=== PATIENT | male | born 1950 | race Caucasian/White ===

== ENCOUNTER → 2016-12-13 | Outpatient (CLI) | payer OTHER | LOC: FIMAGING 13:27 | PROVIDERS: ATTEND Physician Assistant | DX: M54.12 Radiculopathy, cervical region (principal); M51.36 Other intervertebral disc degeneration, lumbar region; M43.12 Spondylolisthesis, cervical region; M50.23 Other cervical disc displacement, cervicothoracic region; M48.02 Spinal stenosis, cervical region ==

== ENCOUNTER → 2017-03-06 | Outpatient (CLI) | payer OTHER ==
[~2017-03-06] MED LIST: GADOBUTROL 10 ML VIAL IVP ONE
== END ==
LOC: FIMAGING 12:47
PROVIDERS: ATTEND Psychiatry & Neurology Neurology
DX: M51.36 Other intervertebral disc degeneration, lumbar region (principal)
CPT/HCPCS: 72158; A9585

== ENCOUNTER → 2017-03-18 | Outpatient (CLI) | payer OTHER | LOC: FLAB 09:38 | PROVIDERS: ATTEND Physician Assistant | DX: M51.36 Other intervertebral disc degeneration, lumbar region (principal); M43.16 Spondylolisthesis, lumbar region; M54.2 Cervicalgia ==

== ENCOUNTER 2017-04-26 16:24 | Inpatient (IN) | payer OTHER ==
--- NOTE | 2017-04-26 16:46 | CPEKG ---
Heart Rate: 78 RR Interval: 769 P-R Interval: 164 QRSD Interval: 92 QT Interval: 368 QTC Interval: 420 P [place]: 38 QRS [place]: -38 T Wave [place]: 80 EKG Severity - ABNORMAL ECG - EKG Impression: SINUS RHYTHM EKG Impression: LEFT AXIS DEVIATION EKG Impression: LATERAL INFARCT, OLD Electronically Signed By: Issa Rodriguez 26-Apr-2017 17:01:40
[2017-04-26] MEDS ORDERED: ASPIRIN 81 MG CHEWABLE TAB PO ONE (16:56)
[2017-04-26] MEDS ORDERED: NITROGLYCERIN 0.4 MG BTL SL PRN (16:56)
--- NOTE | 2017-04-26 16:59 | EDPHY ---
H & P Stated Complaint: chest pain starting last night Time Seen by Provider: 04/26/17 16:54 HPI/ROS: CHIEF COMPLAINT: Chest pain HISTORY OF PRESENT ILLNESS: Patient is a 67-year-old man who comes to the emergency department complaining of chest pain that began last night and is intensified throughout the morning. He denies shortness of breath or diaphoresis. He has felt slightly nauseous. No lightheadedness. The pain does radiate to his left shoulder and neck. He states that he had a coronary artery occlusion 25 years ago and received tPA. He has not had any intervention since then but has had negative stress test with Dr. Washington's office. REVIEW OF SYSTEMS: Constitutional: denies: chills, fever, recent illness, recent injury EENTM: denies: blurred vision, double vision, nose congestion Respiratory: denies: cough, shortness of breath Cardiac: denies: chest pain, irregular heart rate, lightheadedness, palpitations Gastrointestinal/Abdominal: denies: abdominal pain, diarrhea, nausea, vomiting, blood streaked stools Genitourinary: denies: dysuria, frequency, hematuria, pain Musculoskeletal: denies: joint pain, muscle pain Skin: denies: lesions, rash, jaundice, bruising Neurological: denies: headache, numbness, paresthesia, tingling, dizziness, weakness Hematologic/Lymphatic: denies: blood clots, easy bleeding, easy bruising Immunologic/allergic: denies: HIV/AIDS, transplant EXAM: GENERAL: Well-appearing, well-nourished and in no acute distress. HEAD: Atraumatic, normocephalic. EYES: Pupils equal round and reactive to light, extraocular movements intact, sclera anicteric, conjunctiva are normal. ENT: TMs normal, nares patent, oropharynx clear without exudates. Moist mucous membranes. NECK: Normal range of motion, supple without lymphadenopathy or JVD. LUNGS: Breath sounds clear to auscultation bilaterally and equal. No wheezes rales or rhonchi. HEART: Regular rate and rhythm without murmurs, rubs or gallops. ABDOMEN: Soft, nontender, normoactive bowel sounds. No guarding, no rebound. No masses appreciated. BACK: No CVA tenderness, no spinal tenderness, step-offs or deformities EXTREMITIES: Normal range of motion, no pitting or edema. No clubbing or cyanosis. NEUROLOGICAL: Cranial nerves II through XII grossly intact. Normal speech, normal gait. 5/5 strength, normal movement in all extremities, normal sensation PSYCH: Normal mood, normal affect. SKIN: Warm, dry, normal turgor, no visible rashes or lesions. Source: Patient Exam Limitations: No limitations - Personal History Current Tetanus/Diphtheria Vaccine: Yes Current Tetanus Diphtheria and Acellular Pertussis (TDAP): Yes Tetanus Vaccine Date: < 10 years - Medical/Surgical History Hx Asthma: No Hx Chronic Respiratory Disease: No Hx Diabetes: No Hx Cardiac Disease: Yes Hx Renal Disease: No Hx Cirrhosis: No Hx Alcoholism: No Hx HIV/AIDS: No Hx Splenectomy or Spleen Trauma: No Other PMH: HTN, CAD, MS - Family History Significant Family History: No pertinent family hx - Social History Smoking Status: Never smoked Alcohol Use: Sober Drug Use: None Constitutional: Initial Vital Signs Temperature (C) 36.8 C 04/26/17 16:26 Heart Rate 87 04/26/17 16:26 Respiratory Rate 18 04/26/17 16:26 Blood Pressure 123/115 H 04/26/17 16:26 O2 Sat (%) 98 04/26/17 16:26 O2 Delivery Mode Nasal Cannula O2 (L/minute) 2 Allergies/Adverse Reactions: No Known Allergies Allergy (Verified 04/26/17 16:26) Home Medications: Medication Instructions Recorded Cholecalciferol Vit D3 [Vitamin D3 1,000 units PO DAILY 04/22/17 (*)] Herbals/Supplements -Info Only 1 ea PO DAILY 04/22/17 Multivitamins [Multivitamin (*)] 1 each PO DAILY 04/22/17 Teriflunomide [Aubagio] 14 mg PO HS 04/22/17 Furosemide [Lasix 20 MG (*)] 20 mg PO DAILY PRN 04/26/17 Testosterone [Testopel] 75 mg [place] .[id number] 04/26/17 oxyCODONE MYRISTATE [Xtampza ER] 18 mg PO BID 04/27/17 Aspirin EC [Aspirin EC 325 mg (*)] 325 mg PO DAILY tab 04/28/17 Atorvastatin Calcium [Lipitor 20 20 mg PO DAILY #30 tab 04/28/17 mg (*)] Clopidogrel Bisulfate [Plavix (*)] 75 mg PO DAILY #30 tab 04/28/17 Metoprolol Tartrate [Lopressor 25 0.5 tab PO BID 30 Days #15 tab 04/28/17 mg (*)] Triamterene/Hctz 75/50 [Maxzide 0.5 tab PO DAILY 30 Days #15 tab 04/28/17 75-50 mg Tab (*)] Medical Decision Making - Diagnostics EKG Interpretation: An EKG obtained and was read and documented in trace view. Please see trace view for full reading and report. Sinus rhythm, anterior T-wave inversions that are new compared to previous 2011 An EKG obtained and was read and documented in trace view. Please see trace view for full reading and report. Sinus rhythm, T-wave inversions improving but still slightly present ED Course/Re-evaluation: 6:00 p.m. We discussed the case with Dr. Mcdermott who will come to evaluate. The patient's chest pain improved and his EKG improved as well. He has dynamic changes. His troponin is negative. He received nitroglycerin and his blood pressure dropped and he became pale. He is receiving IV fluid bolus. 6:[address] Mcdermott is here and will take the patient to the warehouse general laborer he is asking for Plavix. Differential Diagnosis: Partial list of the Differential diagnosis considered include but were not limited to; acute coronary disease, dissection and although unlikely based on the history and physical exam, I also considered aneurysm, effusion, infection. - Data Points Laboratory Results: Laboratory Results 04/26/17 16:45 04/26/17 16:45 Medications Given: Aspirin Buffered (Aspirin Ec) 325 mg PO DAILY [facility] Stop: 10/24/17 08:59 Last Admin: 04/28/17 08:30 Dose: 325 mg Atorvastatin Calcium (Lipitor) 20 mg PO DAILY [facility] Stop: 10/24/17 08:59 Last Admin: 04/28/17 08:29 Dose: 20 mg Clopidogrel Bisulfate (Plavix) 75 mg PO DAILY [facility] Stop: 10/24/17 08:59 Last Admin: 04/28/17 08:29 Dose: 75 mg Metoprolol Tartrate (Lopressor) 12.5 mg PO BID [facility] Stop: 10/23/17 20:59 Last Admin: 04/28/17 08:31 Dose: 12.5 mg Miscellaneous Medication (Oxycodone Myristate [Xtampza Er]) 18 mg PO BID [facility] Stop: 10/24/17 08:59 Last Admin: 04/28/17 08:31 Dose: 18 mg Miscellaneous Medication (Teriflunomide [Aubagio]) 14 mg PO HS [facility] Stop: 10/24/17 20:59 Last Admin: 04/27/17 19:30 Dose: 14 mg Discontinued Medications Aspirin (Aspirin) 324 mg PO EDNOW ONE Stop: 04/26/17 16:57 Last Admin: 04/26/17 16:25 Dose: 324 mg Clopidogrel Bisulfate (Plavix) 600 mg PO ONCE ONE Stop: 04/26/17 18:38 Last Admin: 04/26/17 19:03 Dose: 600 mg Nitroglycerin (Nitrostat) 0.4 mg SL Q5M PRN PRN Reason: Chest Pain Last Admin: 04/26/17 17:45 Dose: 0.4 mg Departure - Departure Disposition: [facility] Acute Clinical Impression: Acute coronary syndrome Condition: Fair
[2017-04-26 17:03] LABS: PLATELET COUNT 189 10^3/uL (150-400)
--- NOTE | 2017-04-26 17:19 | CPEKG ---
Heart Rate: 75 RR Interval: 800 P-R Interval: 168 QRSD Interval: 92 QT Interval: 388 QTC Interval: 434 P [place]: 27 QRS [place]: -33 T Wave [place]: 77 EKG Severity - ABNORMAL ECG - EKG Impression: SINUS RHYTHM EKG Impression: LEFT AXIS DEVIATION EKG Impression: NONSPECIFIC T ABNORMALITIES, LATERAL LEADS Electronically Signed By: Issa Rodriguez 26-Apr-2017 17:40:01
[2017-04-26 17:26] LABS: INR 0.92 (0.83-1.16); PROTIME(PATIENT) 12.6 SEC (12.0-15.0)
[2017-04-26] MEDS ORDERED: CLOPIDOGREL BISULFATE 75 MG TAB PO ONE (18:37)
--- NOTE | 2017-04-26 18:48 | PDGENHP ---
History and Physical - Chief Complaint chest pain - History of Present Illness Chest pain, precordial radiating to L arm since 3 AM. No CP 9-11 am, recurred at 11 AM and has been waxing/waning since. No abd pain. No back pain. No syncope. No dyspnea. BP dropped to 70 mmHg in ED with NTG History Information - Allergies/Home Medication List Allergies/Adverse Reactions: No Known Allergies Allergy (Verified 04/26/17 16:26) Home Medications: Cholecalciferol Vit D3 [Vitamin D3 (*)] 1,000 units PO DAILY 04/22/17 [Last Taken Unknown] Herbals/Supplements -Info Only 1 ea PO DAILY 04/22/17 [Last Taken Unknown] Lisinopril [Zestril 20 mg (*)] 20 mg PO DAILY 04/22/17 [Last Taken Unknown] Multivitamins [Multivitamin (*)] 1 each PO DAILY 04/22/17 [Last Taken Unknown] Teriflunomide [Aubagio] 14 mg PO DAILY 04/22/17 [Last Taken Unknown] Triamterene/Hctz 75/50 [Maxzide 75-50 mg Tab (*)] 1 tab PO DAILY 04/22/17 [Last Taken Unknown] Androgel 04/23/17 [Last Taken Unknown] Oxycontin PRN 04/23/17 [Last Taken Unknown] Xtampza ER 04/26/17 [Last Taken Unknown] I have personally reviewed and updated: family history, medical history, social history, surgical history - Past Medical History hypertension, hyperlipidemia Additional medical history: multiple sclerosis - Surgical History Additional surgical history: multiple ortho surgeries,. lela'y - Social History Smoking Status: Never smoked Alcohol Use: Sober Drug Use: None Review of Systems Review of Systems: ROS: 10pt was reviewed & negative except for what was stated in HPI & below Physical Exam Physical Exam: Temp Pulse Resp BP Pulse Ox 36.8 C 63 16 88/54 L 98 04/26/17 16:26 04/26/17 18:00 04/26/17 18:00 04/26/17 18:00 04/26/17 18:00 Constitutional: appears nourished, uncomfortable Eyes: PERRL, EOMI Ears, Nose, Mouth, Throat: moist mucous membranes, hearing normal Cardiovascular: regular rate and rhythym, no murmur, rub, or gallop, other ( pulses equal both arms) Peripheral Pulses: 2+: femoral (R), femoral (L), dorsalis-pedis (R), dorsalis- pedis (L) Respiratory: no respiratory distress, no rales or rhonchi Gastrointestinal: normoactive bowel sounds, soft, non-tender abdomen Skin: warm, normal color Musculoskeletal: full muscle strength, no muscle tenderness, normal joint ROM Neurologic: AAOx3, sensation intact bilaterally Psychiatric: interacting appropriately, not anxious, not encephalopathic, thought process linear Lab Data & Imaging Review 04/26/17 16:45 04/26/17 16:45 WBC 7.78 10^3/uL (3.80-9.50) 04/26/17 16:45 RBC 5.36 10^6/uL (4.40-6.38) 04/26/17 16:45 Hgb 16.5 g/dL (13.7-17.5) 04/26/17 16:45 Hct 48.7 % (40.0-51.0) 04/26/17 16:45 MCV 90.9 fL (81.5-99.8) 04/26/17 16:45 MCH 30.8 pg (27.9-34.1) 04/26/17 16:45 MCHC 33.9 g/dL (32.4-36.7) 04/26/17 16:45 RDW 13.9 % (11.5-15.2) 04/26/17 16:45 Plt Count 189 10^3/uL (150-400) 04/26/17 16:45 MPV 10.4 fL (8.7-11.7) 04/26/17 16:45 Neut % (Auto) 61.3 % (39.3-74.2) 04/26/17 16:45 Lymph % (Auto) 21.7 % (15.0-45.0) 04/26/17 16:45 [place] % (Auto) 11.3 % (4.5-13.0) 04/26/17 16:45 Eos % (Auto) 4.4 % (0.6-7.6) 04/26/17 16:45 Baso % (Auto) 1.0 % (0.3-1.7) 04/26/17 16:45 Nucleat RBC Rel Count 0.0 % (0.0-0.2) 04/26/17 16:45 Absolute Neuts (auto) 4.77 10^3/uL (1.70-6.50) 04/26/17 16:45 Absolute Lymphs (auto) 1.69 10^3/uL (1.00-3.00) 04/26/17 16:45 Absolute Monos (auto) 0.88 10^3/uL (0.30-0.80) H 04/26/17 16:45 Absolute Eos (auto) 0.34 10^3/uL (0.03-0.40) 04/26/17 16:45 Absolute Basos (auto) 0.08 10^3/uL (0.02-0.10) 04/26/17 16:45 Absolute Nucleated RBC 0.00 10^3/uL (0-0.01) 04/26/17 16:45 Immature Gran % 0.3 % (0.0-1.1) 04/26/17 16:45 Immature Gran # 0.02 10^3/uL (0.00-0.10) 04/26/17 16:45 PT 12.6 SEC (12.0-15.0) 04/26/17 16:45 INR 0.92 (0.83-1.16) 04/26/17 16:45 APTT 28.8 SEC (23.0-38.0) 04/26/17 16:45 D-Dimer < 0.27 ug/mLFEU (0.00-0.50) 04/26/17 16:45 Sodium 144 mEq/L (135-145) 04/26/17 16:45 Potassium 3.6 mEq/L (3.5-5.2) 04/26/17 16:45 Chloride 100 mEq/L (97-110) 04/26/17 16:45 Carbon Dioxide 30 mEq/l (22-31) 04/26/17 16:45 Anion Gap 14 mEq/L (8-16) 04/26/17 16:45 BUN 20 mg/dL (7-23) 04/26/17 16:45 Creatinine 1.0 mg/dL (0.7-1.3) 04/26/17 16:45 Estimated GFR > 60 04/26/17 16:45 Glucose 108 mg/dL (70-100) H 04/26/17 16:45 Calcium 9.7 mg/dL (8.5-10.4) 04/26/17 16:45 Troponin I 0.321 ng/mL (0.000-0.034) H 04/26/17 16:45 EKG additional interpertation: NSR, ST depression with prominent R wave V2, dynamic ECG changes Assessment & Plan Assessment: Acute coronary syndrome (Acute) NSTEMI, poss posterior infarct Plan: -ASA 325 mg given in ED -BB not given due to hypotension -Plavix 600 mg ordered to be given in ED -With ongoing CP, and dynamic ECG changes + troponin increase; coronary angiogram is appropriate. Risks of procedure including , PA, CVA, bleed, DVT, PE, renal failure, anaphylaxis d.w. patient and . Outcomes including no Rx, PCI, CABG d.w. them
--- NOTE | 2017-04-26 18:57 | PDHPUP ---
History & Physical Update H&P update statement: This history and physical update is based on an assessment of the patient which was completed after admission or registration (within 24 hours), but prior to the surgery/procedure. H&P update: H&P reviewed & patient examined, no change in patient's condition since H&P completed
[2017-04-26] MEDS ORDERED: LIDOCAINE 1% 300 MG/30 ML SDV ONE (18:58)
--- NOTE | 2017-04-26 18:58 | PDPROPOC ---
Sedation Plan of Care Sedation Plan of Care: mental status noted, patient educated of risks, benefits , alternatives, patient can tolerate sedation ASA Classification: ASA 2 Planned drugs: fentanyl, midazolam Mallampati Score: Class 2 Mallampati Reference Image: Patient passed 3-3-2 rule?: Yes
[2017-04-26] MEDS ORDERED: fentaNYL 100 MCG/2 ML INJ ONE ×2 (19:26→20:18)
[2017-04-26] MEDS ORDERED: IOPAMIDOL (ISOVUE-370) 150 ML BTL IV ONE (19:26)
[2017-04-26] MEDS ORDERED: MIDAZOLAM 2 MG/2 ML VIAL ONE (19:26)
[2017-04-26] MEDS ORDERED: BIVALIRUDIN 250 MG/5 ML VIAL IV ONE (19:38)
[2017-04-26] MEDS: METOPROLOL TARTRATE 25 MG TAB PO SCH (21:25)
--- NOTE | 2017-04-26 22:08 | CPIP ---
[f rep st] INVASIVE CARDIAC PROCEDURE DATE OF PROCEDURE: 04/26/2017 INDICATIONS FOR PROCEDURE: Non-STEMI. PROCEDURES: 1. Nonselective right groin sheathogram. 2. Bilateral coronary angiography. 3. Left heart catheterization. 4. Left ventriculogram. 5. Attempted wiring and ballooning, right coronary artery chronic total occlusion. HISTORY: Briefly, this is a 67-year-old male with history of prior remote [place] years ago, which appare ntly was treated with tPA. The patient had chest pain last night and came to the emergency room for further evaluation. The patient had nonspecific T-wave changes in the anterior leads. Patient also became hypotensive with admission sublingual nitroglycerin. Patient had a troponin of 0.321. The pa tient was consented for left heart catheterization. DESCRIPTION OF PROCEDURE: After informed consent, the patient was brought to [facility] where the right niles in was prepped and draped in sterile fashion. Utilizing local lidocaine, a short 6-Moldovan sheath was introduced in the right common femoral artery verified angiographically. Through the 6-Moldovan sheat h, a JR4 catheter was advanced to the left coronary artery. Images of left coronary artery revealed normal left main. LAD was a long vessel which wrapped around the apex with distal 30% to 40% disease . There was a small long diagonal artery coming off proximally which had proximal 80% to 90% disease , but again, this vessel measured approximately 1.0 in its width. Proximally there was a circumflex artery which had diffuse 30% to 40% disease and which gave off a marginal 1 which bifurcated and a ma rginal 2 artery. Of note, there was what appeared to be an occluded distal marginal 3 artery which r econstituted from jwst-be-acop collaterals. This appeared to be a very tiny vessel measuring well be low 0.5 mm. Of note, there was also robust collateralization to the distal RPD and RPL, thus indicat ing most likely an RCA occlusion. After the images were obtained, the JL4 catheter was removed. The JR4 catheter was advanced to the right coronary artery. Images of the right coronary artery reveale d normal os prox RCA. The mid RCA had 70% to 80% smooth lesion leading to 100% occlusion. At this t jad, the JR4 catheter was removed. The patient had been administered 600 mg of Plavix p.o. prior to the case as well as started on an Angiomax bolus and drip. We placed a JR4 6-Moldovan guide into the r ight coronary artery and attempts were made to wire this lesion in the RCA with a Choice PT wire. Of note, the wire had much difficulty traversing this area but did successfully eventually cross into w hat appeared to be the RPDA and RPLS. Of note, there did appear to be reconstitution of the vessel o nce the wire did cross. However, we tried to deliver balloons ranging from 3.0 down to 1.5, however, none of the balloons would cross. We then placed a Guidezilla and a GuideLiner. Both these devices were not effective in delivering even the smallest 1.5 balloon across the mid RCA lesions. We then switched out the guide for an AL1 side-hole 6-Moldovan catheter and rewired with a [employer] J wire. Th is again had difficulty rewiring across the mid vessel but it was in true vessel distally. We again tried to deliver the balloon starting from the 1.5 balloon. A brief PTCA was attempted in the mid pr oximal aspect to see if this would give us enough of tunnel to get through this lesion. At 10 atmosp heres, however, this was not successful in opening the vessel any further. We then placed again the GuideLiner to see if it would give us any further depth. However, this was not able to get past the proximal mid lesion in the RCA. After all of these issues, it should be noted that the patient's ECG stayed completely normal sinus rhythm with no ST elevations. The patient's blood pressure stayed st able as well and he did not have any chest pain during this, which indicated that this lesion in the mid RCA, though occluded with some increase in flow antegrade with a wire the crossing, was most like ly a subtotal LEGAL OFFICER. The patient had robust collateralization from the left to right coronary artery a nd again at this point in the case, the patient was completely stable. Given the fact that numerous balloons, even the smallest 1.5 mm balloon, was attempted to cross this lesion with a GuideLiner and could not even traverse the mid RCA, we decided this most likely was a subtotal chronic total occlusi on. At this time, the wire was removed. The guide catheter was removed. The pigtail catheter was a dvanced to the left ventricle, EDP was 15 mmHg. Left ventriculogram in the BOSS projection showed an EF of 55% with no wall motion abnormalities and the inferior wall moved normally. The pigtail cathet er was removed with no pullback gradient. The pigtail catheter was removed over the 0.035 wire. Rig ht groin was closed with a 6-Moldovan angio-seal. Patient tolerated the procedure well with no issues. IMPRESSION: 1. 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 2. Severe disease of a small diagonal artery. 3. Occluded distal marginal 3 artery which is a tiny vessel. PLAN: The patient's diagonal arteries and marginal arteries are not amenable to bypass surgery given the tiny caliber of the vessels. The RCA is a large vessel distally. However, there is robust ashwin ateralization from left to right coronary artery and the patient is currently asymptomatic and hemody namically stable with an ECG that shows no inferior injury current. I suspect this patient's underly ing event years ago was probably from his right coronary artery which recanalized with collateralizat ion. Given the fact that we could not traverse this area with even the smallest balloon, I would not pursue any other aggressive intervention at this point of the vessel. I think medical therapy would be the most prudent course at this time. We will keep the patient on aspirin and Plavix, as well as initiate a low-dose beta lavell. Will avoid nitrates as the patient did become hypotensive in the e mergency room when given this medication. Check a cardiac echo in the morning. Further orders follo wing clinical correlation. /[id number]/MODL
[2017-04-27 03:58] LABS: CREATINE KINASE 646 IU/L (0-224)
--- NOTE | 2017-04-27 04:00 | PDMN ---
Medical Necessity Medical necessity: C/M review: Patient meets INPT criteria under MCG M-230 Myocardial infarction, M-89 Chest pain: Acute coronary syndrome, NSTEMI, troponin 0.321, requiring emergent cardiac catheterization - LHC, attempted wiring and ballooning RCA chronic total occlusion, with robust collateralization from left coronary artery, severe disease of a small diagonal artery, occluded distal marginal 3 artery which is a tiny vessel,- diagonal and marginal arteries are not amenable to bypass surgery given the tiny caliber of the vessels requiring ongoing cardiac monitoring, medical management, wuith aspirin, Plavix, beta lavell, comorbid hypertension, hyperlipidemia, history of prior [place] treated with tPA. MD anticipates > 2 [place] LOS for ongoing med nec for eval and [place] of above. Patient is Medicare Advantage which follows guidelines CMS puts forth.
[2017-04-27] MEDS: METOPROLOL TARTRATE 25 MG TAB PO SCH ×2 (08:20→20:29)
[2017-04-27] MEDS: CLOPIDOGREL BISULFATE 75 MG TAB PO SCH (08:20)
[2017-04-27] MEDS: ASPIRIN EC 325 MG TAB PO SCH (08:20)
[2017-04-27] MEDS: ATORVASTATIN CALCIUM 20 MG TAB PO SCH (08:20)
[2017-04-27] MEDS: Oxycodone Myristate [Xtampza Er] 18 MG PO SCH ×2 (08:39→19:30)
[2017-04-27] MEDS ORDERED: OXYCODONE MYRISTATE 18 MG PO SCH (09:00)
[2017-04-27 09:29] LABS: CREATINE KINASE 825 IU/L (0-224)
--- NOTE | 2017-04-27 13:13 | ECHO ---
[email or web address] [address] [address] Main: [phone] Fax: Transthoracic Echocardiogram Name: MEG LOGAN MR#: [id number] Study Date: 04/27/2017 Study Time: 09:18 AM Date of : 1950 Age: 67 year(s) Height: 175.3 cm (69 in.) Weight: 81.65 kg (180 lb.) BSA: 1.98 m2 Gender: Male Examination: Echo Indication: Post Cath Image Quality: Contrast: Requested by: Pérez Mcdermott BP: 110 mmHg/65 mmHg Heart Rate: Rhythm: Normal sinus rhythm Indication: Post Cath Procedure Staff Principal Clerk: Darron Portillo RDCS Reading Physician: Toro Wu MD Requesting Provider: Conclusions: Normal size left ventricle. No LV hypertrophy. Low normal left ventricular systolic function. EF is 53 %. Diastolic dysfunction is present. . There is basilar to mid inferior hypokinesis.. Normal size right ventricle. The left atrium is normal in size. The right atrium is normal in size. There is no mitral valve regurgitation. The aortic valve is tri-leaflet. Trivial tricuspid valve regurgitation. No pericardial effusion. Measurements: Chambers Valvular Assessment AV/MV Valvular Assessment TV/PV Normal Normal Normal Name Value Range Name Value Range Name Value Range Ao [place] (MM): 3.0 cm (2.2 cm-3.7 AV Vmax: 1.40 m/s (1 m/s-1.7 PV Vmax: 0.90 m/s (0.6 m/s-0.9 cm) m/s) m/s) IVSd (2D): 1.0 cm (0.6 cm-1.1 AV maxP mmHg ( - ) PV PGmax: 3 mmHg ( - ) cm) LVOT Vmax: 1.02 m/s (0.7 m/s-1.1 LVDd (2D): 4.3 cm (4.2 cm-5.9 m/s) cm) MV E Vmax: 0.77 m/s ( - ) LVDs (2D): 2.4 cm (2.1 cm-4 MV A Vmax: 1.03 m/s ( - ) cm) MV E/A: 0.75 ( - ) LVPWd (2D): 1.1 cm (0.6 cm-1 cm) LVEF (BP): 53 % (>=55 %) Patient: MEG LOGAN Study Date: 04/27/2017 Page 1 of 2 09:18 AM Continued Measurements: Chambers Valvular Assessment AV/MV Name Value Name Value LADs Lon.9 cm MV E/E' Septal: 18.40 LA Area: 16.7 cm2 MV E/E' Lateral: 11.80 Findings: Left Ventricle: Normal size left ventricle. No LV hypertrophy. Low normal left ventricular systolic function. EF is 53 %. Diastolic dysfunction is present. . There is basilar to mid inferior hypokinesis.. Right Ventricle: Normal size right ventricle. Left Atrium: The left atrium is normal in size. Right Atrium: The right atrium is normal in size. Mitral Valve: The mitral valve is normal in appearance and function. There is no mitral valve regurgitation. Aortic Valve: Mild aortic cusp calcification is noted. The aortic valve is tri-leaflet. No aortic valve stenosis is present. Tricuspid Valve: Trivial tricuspid valve regurgitation. Pulmonic Valve: Pulmonary valve not well visualized. Aorta: The aorta is normal. Pericardium: No pericardial effusion. (No Signature Object) Patient: MEG LOGAN Study Date: 04/27/2017 Page 2 of 2 09:18 AM [id number]
--- NOTE | 2017-04-27 15:29 | PDCARPN ---
Cardiology Progress Note Chief Complaint: Chest pains Assessment/Plan: Assessment: Patient is a 67 y/o male with history of CAD (known from the past with angiography about 20 years ago), HTN, HLP, and multiple sclerosis, who presented to [facility] with complaints of chest pains. Given past history of "known" CAD, the patient was taken to the cardiac scientific laboratory supervisor by Dr. Marco A Kitchen, with notable RCA occlusion and 30-40% stenosis to the LAD system. There was also a very small diagonal with critical lesions noted, but not felt to be amenable to PCI or discussion about CABG. Attempts to cross the RCA lesion were unsuccessful. No chest pains or pressure were noted. No changes to the ECG were appreciated. The patient was placed in the ICU overnight for monitoring. Overnight, the patient had a 32 beat run of VT (asymptomatic) as well a five beat run of VT earlier this morning. Family was present with the patient today. Reintroduction of statins and beta blockers today. Plan: (1) Aggressive risk factor modification (2) Statins should continue with reassessment of cholesterol and LFTs in about 5 weeks (3) Given the ventricular ectopy that was noted, would emphasize the use of beta lavell therapy (4) Continue therapy on ASA and Plavix given the noted CAD (5) Will have EP consult with the patient tomorrow given the ventricular ectopy that has been noted Subjective: No cardiovascular complaints. Reviewed/Discussed With: family, multidisciplinary team Objective: Vital Signs (8 Hrs) Temp Pulse Resp BP Pulse Ox 04/27/17 14:00 72 14 92/65 L 96 04/27/17 12:00 70 12 101/64 95 04/27/17 10:00 72 19 109/64 95 04/27/17 08:00 36.6 C 71 15 100/62 95 Intake/Output (24 Hrs) 04/26/17 04/27/17 04/28/17 04:59 05:59 05:59 Intake Total Output Total Balance Intake: IV Intake (ml) Output: Urine (ml) Urinal Other: Weight Number of Voids Urinal Result Diagrams: 04/26/17 16:45 04/26/17 16:45 Cardiac Labs: Cardiac Lab Results (72 Hrs) 04/27/17 07:52 CK-MB (CK-2) Fraction 70.50 H Troponin I 9.100 H Telemetry: normal sinus rhythm with PVCs - Physical Exam Constitutional: WDWN, healthy appearing Eyes: PERRL, EOMI Ears, Nose, Mouth, Throat: moist mucous membranes Cardiovascular: regular rate and rhythm, no murmurs, no rubs, pulses symmetric bilat, No jugular vein distention Peripheral Pulses: 2+: dorsalis-pedis (R), dorsalis-pedis (L) Respiratory: clear to auscultate bilat, no crackles, no wheezes Gastrointestinal: normoactive bowel sounds Skin: no rashes, no edema Musculoskeletal: no muscular tenderness Neurologic: AAOx3, CN II-XII grossly intact Psychiatric: cooperative, interactive, following commands ICD10 Worksheet Patient Problems: Problems Problem Status Onset Acute coronary syndrome Acute
--- NOTE | 2017-04-27 18:01 | ASMTCMCOM ---
CM Note CM Note Notes: 67yr old male admitted for CP, ACD. He has a hx of HTN, HLD, MS. Went to the pharmaceutical laboratory technician and to be tx medically. Lives with his . No discharge needs anticipated. Date Signed: 04/27/2017 09:36 AM Electronically Signed By:Cynthia Gould LCSW
[2017-04-27] MEDS ORDERED: TERIFLUNOMIDE 14 MG PO SCH (21:00)
[2017-04-27] MEDS ORDERED: Teriflunomide [Aubagio] 14 MG PO SCH (21:00)
[2017-04-28 07:59] VITALS: RESP 20; TEMP 98.2; O2SAT 95
[2017-04-28] MEDS: ATORVASTATIN CALCIUM 20 MG TAB PO SCH (08:29)
[2017-04-28] MEDS: CLOPIDOGREL BISULFATE 75 MG TAB PO SCH (08:29)
[2017-04-28] MEDS: ASPIRIN EC 325 MG TAB PO SCH (08:30)
[2017-04-28] MEDS: METOPROLOL TARTRATE 25 MG TAB PO SCH (08:31)
[2017-04-28] MEDS: Oxycodone Myristate [Xtampza Er] 18 MG PO SCH (08:31)
[2017-04-28 08:47] VITALS: BP 116/69; PULSE 72
--- NOTE | 2017-04-28 09:24 | CPEKG ---
Heart Rate: 72 RR Interval: 833 P-R Interval: 180 QRSD Interval: 92 QT Interval: 396 QTC Interval: 434 P [place]: 29 QRS [place]: -46 T Wave [place]: 61 EKG Severity - ABNORMAL ECG - EKG Impression: SINUS RHYTHM EKG Impression: LAD, CONSIDER LEFT ANTERIOR FASCICULAR BLOCK , possible inferior IA Electronically Signed By: Pérez Mcdermott 28-Apr-2017 10:26:09
[2017-04-28 09:51] LABS: CREATINE KINASE 600 IU/L (0-224)
--- NOTE | 2017-04-28 12:23 | PDCARPN ---
Cardiology Progress Note Chief Complaint: CP Assessment/Plan: Assessment: NSTEMI RCA SUPPORT STAFF Small vessel CAD Plan: 04/28/17 12:22 Pt feels much better today Echo- NL EF with mild inferior wall hypokinesis BP stable. Continue on ASA, palvix, statin, BB f/u as outpatient Subjective: feels well Reviewed/Discussed With: multidisciplinary team Time Spent With Patient: 25 min Objective: Vital Signs (8 Hrs) Temp Pulse Resp BP Pulse Ox 04/28/17 08:31 72 116/69 04/28/17 07:57 36.8 C 82 20 95/44 L 95 Intake/Output (24 Hrs) 04/27/17 04/28/17 04/29/17 05:59 05:59 05:59 Intake Total 1750 Output Total 250 Balance 1500 Intake: Oral (ml) 1750 IV Intake (ml) Output: Urine (ml) 250 Urinal 250 Other: Weight Intake Quantity Yes Sufficient Number of Voids Toilet 6 Urinal 5 Result Diagrams: 04/26/17 16:45 04/26/17 16:45 Cardiac Labs: Cardiac Lab Results (72 Hrs) 04/28/17 04/27/17 09:30 07:52 CK-MB (CK-2) Fraction 36.60 H 70.50 H Troponin I 9.680 H 9.100 H - Physical Exam Constitutional: healthy appearing Eyes: PERRL Ears, Nose, Mouth, Throat: moist mucous membranes Peripheral Pulses: 1+: femoral (R), femoral (L) Respiratory: clear to auscultate bilat Gastrointestinal: normoactive bowel sounds Genitourinary: no suprapubic tenderness Skin: no rashes Musculoskeletal: no muscular tenderness Neurologic: AAOx3 Psychiatric: cooperative ICD10 Worksheet Patient Problems: Problems Problem Status Onset Acute coronary syndrome Acute
--- NOTE | 2017-04-28 17:12 | GDS ---
[f rep st] DISCHARGE SUMMARY DISCHARGE DIAGNOSES: 1. Non-ST segment elevation myocardial infarction with inferior myocardial infarction. 2. Chronic total occlusion of right coronary artery. 3. Small vessel coronary artery disease. 4. Hypertension. 5. Peripheral edema. 6. Dyslipidemia. 7. Ventricular tachycardia. PROCEDURES: 1. On 04/26/2017: Left heart catheterization which showed normal left main, 30% to 40% LAD, 80% to 90 % disease in a diagonal which was a very small vessel, circumflex with 30% to 40%, OM that was occlud ed with reconstitution with [id number] collaterals, RCA which showed a mid 70% to 80% occlusion fol lowed by 100% occlusion. Multiple attempts to canalize vessel were unsuccessful. 2. Echo from 04/27/2017, shows EF of 53%. Positive diastolic dysfunction and basal mid inferior hypo kinesis. BRIEF HISTORY: Please see dictated H and P by Dr. Pérez Mcdermott for complete details. In brief, the pat ieawilda is a 67-year-old male with a history of known coronary artery disease, dyslipidemia, hypertensio n and multiple sclerosis, who was admitted on 04/26/2017, with onset of chest pain that radiated into his left arm on the morning of admission. This had a waxing and waning quality since onset. Laborato ry data showed an elevated troponin at 0.3, and EKG was demonstrative of ST depressions without signi ficant elevation. He proceeded to left heart catheterization with results as dictated above. HOSPITAL COURSE BY PROBLEM: 1. NSTEMI with inferior CO. He likely had occluded RCA that became 100% occluded causing his acute c oronary syndrome event. He will be started on dual antiplatelet therapy with aspirin and Plavix. We d iscussed medical management, and he is agreeable to reinstitution of statin therapy. 2. Ventricular tachycardia. He did have a run of 32-beat VT. This was asymptomatic. He has been plac ed on metoprolol and is tolerating this. There have been no further runs of VT since 04/27/2017, morn ing. 3. Chest pain due to #1. He has not had further symptoms. 4. Hypertension. Blood pressures have been low. His lisinopril will be held, his Maxzide dose is sil ng halved. He will be started on metoprolol therapy. PHYSICAL EXAM: VITAL SIGNS: On day of discharge, blood pressure 116/69, heart rate of 82, respiratio ns 20, O2 saturation 95% on room air, temp of 98.2 degrees Fahrenheit. GENERAL: He is a very pleasant male in no apparent distress. HEENT: Normocephalic atraumatic. EYES: PERRL. HEART: Regular rate and rhythm. LUNGS: Clear. EXTREMITIES: Right groin site without bruit, ecchymosis or edema. He has 1 to 2 + PT and DP pulses bilaterally. There is no edema present. RESULTS PENDING: None. DIET: Per previous with cardiac diet discussed in this meeting. DISCHARGE MEDICATIONS: Please see med reconciliation. He is to continue his Xtampza ER, testopel, [place] bagio, furosemide p.r.n., vitamin D3, and a multivitamin. His triamterene with hydrochlorothiazide is being decreased in half. He is to start metoprolol tartrate 12.5 mg p.o. twice daily, Plavix 75 mg p .o. daily, atorvastatin 20 mg p.o. daily, and aspirin 325 mg p.o. daily. FOLLOWUP INSTRUCTIONS: 1. Groin precautions as reviewed. 2. Follow up with Dr. Rad [place] in 1-2 weeks' time. Please note that greater than 30 minutes was spent on discharge and coordination of care. /[id number]/MODL
--- NOTE | 2017-04-29 08:46 | CPEKG ---
Heart Rate: 67 RR Interval: 896 P-R Interval: 184 QRSD Interval: 88 QT Interval: 400 QTC Interval: 423 P [place]: 8 QRS [place]: -37 T Wave [place]: 81 EKG Severity - OTHERWISE NORMAL ECG - EKG Impression: SINUS RHYTHM EKG Impression: LEFT AXIS DEVIATION EKG Impression: ST depression in V2-V3, possible ischemia Electronically Signed By: Pérez Mcdermott 29-Apr-2017 08:48:05
== END 2017-04-28 11:56 | disposition home or self-care (01) | DRG 251 ==
LOC: F2N 20:57 → OBSVTOIN 04-27 03:42
PROVIDERS: ADMIT Internal Medicine Cardiovascular Disease; ATTEND Internal Medicine Cardiovascular Disease
DX: I21.4 Non-ST elevation (NSTEMI) myocardial infarction (principal); I25.10 Atherosclerotic heart disease of native coronary artery without angina pectoris; G35 Multiple sclerosis; I47.2 Ventricular tachycardia; E78.5 Hyperlipidemia, unspecified; I10 Essential (primary) hypertension; I25.2 Old myocardial infarction
CPT/HCPCS: C1725; C1760; C1769; C1887; J0583; J1200; J1644; J2250; J3010; Q9967

== ENCOUNTER 2017-04-30 10:09 | Emergency (ER) | payer OTHER ==
[2017-04-30 10:17] VITALS: TEMP 98.2
--- NOTE | 2017-04-30 10:42 | CPEKG ---
Heart Rate: 68 RR Interval: 882 P-R Interval: 192 QRSD Interval: 94 QT Interval: 388 QTC Interval: 413 P [place]: 44 QRS [place]: -40 T Wave [place]: 54 EKG Severity - ABNORMAL ECG - EKG Impression: SINUS RHYTHM EKG Impression: LEFT AXIS DEVIATION EKG Impression: PROBABLE LATERAL INFARCT, AGE INDETERMINATE Electronically Signed By: Bridget Daniels 30-Apr-2017 13:44:54
--- NOTE | 2017-04-30 10:54 | EDPHY ---
HPI/HX/ROS/PE/MDM Narrative: CHIEF COMPLAINT: Left-sided abdominal pain HISTORY OF PRESENT ILLNESS: This patient is a 67 year old male with history of hypertension and CAD arriving at the request of his primary care physician, Dr. Lomeli, for evaluation of left-sided upper abdominal pain. The patient was admitted 04/27/17 for a non-STEMI and underwent cardiac catheterization. Canalization attempts for the coronary arteries were unsuccessful. He was discharged 04/28 in good condition. Yesterday he developed a sharp stabbing pain in his left upper abdominal. The area is tender to palpation. The patient has not had a bowel movement since Friday. He denies cramping or the urge to have a bowel movement. He has had constipation in the past from chronic OxyContin use. He recently switched to Xtampza ER for pain control. Has tried magnesium citrate for relief of constipation. He continues to experience some chest discomfort, but this has relieved significantly since his admission. He denies fever, chills , shortness of breath, palpitations, vomiting, diarrhea, urinary complaints, headache, lightheadedness. REVIEW OF SYSTEMS: Aside from elements discussed in the HPI, a comprehensive 10-point review of systems was reviewed and is negative. PAST MEDICAL HISTORY: Appendectomy. Hernia repair. Hypertension. Coronary Artery Disease. Multiple sclerosis. Dyslipidemia. SOCIAL HISTORY: . at bedside. Lives in [place]. VITAL SIGNS: Reviewed by me GENERAL: Well-developed, well-nourished, resting comfortably in no respiratory distress. HEENT: Atraumatic. Eyes: No icterus, no injection. Mouth: moist mucous membranes. No erythema or lesions. Neck: supple with no adenopathy. LUNGS: Clear to auscultation bilaterally, no wheezes, rhonchi or rales. CARDIAC: Regular rate and rhythm, no rubs, murmurs or gallops. ABDOMEN: Soft, nontender to palpation, including the left upper quadrant. No distension. No guarding or rebound. BACK: No CVA tenderness. EXTREMITIES: No trauma. No edema. Range of motion is normal throughout. NEURO: Alert and oriented, grossly nonfocal. SKIN: Warm and dry, no rash. PSYCHIATRIC: Normal mentation, no agitation. Portions of this note were transcribed by a medical numerical control operator. I personally performed a history, physical exam, medical decision making, and confirmed accuracy of information the transcribed note. ED Course: 67 y/o male with recent admission for non-STEMI presents with LUQ abdominal pain. Plan for EKG, x-ray of chest and abdomen. Plan for labs including CBC, chemistries, troponin. 12-LEAD EKG: Please see the full report in [facility]. My interpretation: Sinus rhythm, rate 68. LAD. Chest x-ray negative for acute processes. Abdominal x-ray negative for acute processes. Troponin elevated at 5.57, but this is decreasing since his most elevated troponin during his admission, which was 9.68 on 04/28/17. Consulted with cardiology. Plan to discharge home in good condition. Patient will take magnesium citrate for constipation. Follow up and return precautions discussed. He is comfortable with this plan. MDM: After obtaining the patient's history and performing an examination, differential diagnosis considered included but was not limited to constipation, lower lobe pneumonia, urinary tract infection, kidney stone, gastritis, pancreatitis, and other causes. - Data Points Imaging Results: CXR: Impression: Stable negative chest. Dictated By: Pasquale Killian MD Abdominal xray: Impression: 1. Negative abdominal radiographs. Dictated By: Pasquale Killian MD Imaging: I viewed and interpreted images myself Laboratory Results: Laboratory Results 04/30/17 10:54 04/30/17 10:54 General Time Seen by Provider: 04/30/17 10:23 Initial Vital Signs: Initial Vital Signs Temperature (C) 36.8 C 04/30/17 10:14 Heart Rate 80 04/30/17 10:14 Respiratory Rate 18 04/30/17 10:14 Blood Pressure 143/103 H 04/30/17 10:14 O2 Sat (%) 96 04/30/17 10:14 O2 Delivery Mode Room Air Allergies/Adverse Reactions: No Known Allergies Allergy (Verified 04/30/17 10:13) Home Medications: Medication Instructions Recorded Cholecalciferol Vit D3 [Vitamin D3 1,000 units PO DAILY 04/22/17 (*)] Herbals/Supplements -Info Only 1 ea PO DAILY 04/22/17 Multivitamins [Multivitamin (*)] 1 each PO DAILY 04/22/17 Teriflunomide [Aubagio] 14 mg PO HS 04/22/17 Furosemide [Lasix 20 MG (*)] 20 mg PO DAILY PRN 04/26/17 Testosterone [Testopel] 75 mg [place] .[id number] 04/26/17 oxyCODONE [place] [Xtampza ER] 18 mg PO BID 04/27/17 Aspirin EC [Aspirin EC 325 mg (*)] 325 mg PO DAILY tab 04/28/17 Atorvastatin Calcium [Lipitor 20 20 mg PO DAILY #30 tab 04/28/17 mg (*)] Clopidogrel Bisulfate [Plavix (*)] 75 mg PO DAILY #30 tab 04/28/17 Metoprolol Tartrate [Lopressor 25 0.5 tab PO BID 30 Days #15 tab 04/28/17 mg (*)] Triamterene/Hctz 75/50 [Maxzide 0.5 tab PO DAILY 30 Days #15 tab 04/28/17 75-50 mg Tab (*)] Departure - Departure Disposition: Home, Routine, Self-Care Clinical Impression: Abdominal pain Qualifiers: Abdominal location: left upper quadrant Qualified Code(s): R10.12 - Left upper quadrant pain Condition: Good Instructions: Abdominal Pain (ED) Additional Instructions: Please continue to take your medications as directed. Return to the emergency department or seek care urgently if your pain is worsening, if you developed lightheadedness or dizziness,if you developed vomiting. Continue to take magnesium citrate for constipation. Referrals: Beto Lomeli MD [Primary Care Provider] - As per Instructions Report Scribed for: Bridget Daniels Report Scribed by: Laurie Ferrer Date of Report: 04/30/17 Time of Report: 12:33
[2017-04-30 11:05] LABS: PLATELET COUNT 154 10^3/uL (150-400)
[2017-04-30 11:54] VITALS: BP 114/72; PULSE 67; RESP 17; O2SAT 94
== END 2017-04-30 12:26 | disposition home or self-care (01) ==
DX: R10.12 Left upper quadrant pain (principal); I10 Essential (primary) hypertension; I25.10 Atherosclerotic heart disease of native coronary artery without angina pectoris; Z79.82 Long term (current) use of aspirin; Z90.89 Acquired absence of other organs

== ENCOUNTER 2017-05-19 10:45 | Inpatient (IN) | payer OTHER ==
[2017-07-30] MEDS ORDERED: GABAPENTIN 300 MG CAP PO ONE (09:59)
[2017-07-30] MEDS ORDERED: ACETAMINOPHEN 500 MG TAB PO ONE (09:59)
[2017-07-30] MEDS ORDERED: ceFAZolin 2 GM/DEXTROSE 100 ML IV ONE (09:59)
[2017-07-30] MEDS ORDERED: LIDOCAINE 1% 2 ML INJ ID PRN (10:01)
[2017-07-30] MEDS ORDERED: LR 1,000 ML IV ONE (10:01)
[2017-07-30] MEDS ORDERED: CHLORHEXIDINE GLUC HIBICLENS 118 ML BTL TP ONE (11:49)
[2017-07-30] MEDS ORDERED: BUPIVACAINE 0.25% 30 ML SDV ONE (11:49)
[2017-07-30] MEDS ORDERED: THROMBIN (BOVINE) 5,000 UNIT VIAL TP ONE (11:49)
[2017-07-30] MEDS ORDERED: EPINEPHrine 1 MG/ML INJ ONE (11:50)
[2017-07-30] MEDS ORDERED: BACITRACIN 50,000 UNITS/10 ML SYR IRR ONE (11:50)
--- NOTE | 2017-07-30 12:51 | PDANEPAE ---
ANE History of Present Illness 67 year old with l2-4 spinal stenosis ANE Past Medical History - Cardiovascular History Hx Hypertension: Yes Hx Arrhythmias: No Hx Chest Pain: No Hx Coronary Artery / Peripheral Vascular Disease: No Hx CHF / Valvular Disease: No Hx Palpitations: No Cardiovascular History Comment: recent vtach issues 04/2017 admitted to hospital. NSTEMI with inferior [place]. cath 04/26/17. chronic total occlussion of right coronary artery. peripheral edema. dyslipidemia - Pulmonary History Hx COPD: No Hx Asthma/Reactive Airway Disease: No Hx Recent Upper Respiratory Infection: No Hx Oxygen in Use at Home: No Hx Sleep Apnea: Yes Sleep Apnea Screening Result - Last Documented: Positive Pulmonary History Comment: carrie triggers - Neurologic History Hx Cerebrovascular Accident: No Hx Seizures: No Hx Dementia: No Neurologic History Comment: MS - Endocrine History Hx Diabetes: No - Renal History Hx Renal Disorders: No - Liver History Hx Hepatic Disorders: No - Neurological & Psychiatric Hx Hx Neurological and Psychiatric Disorders: No Neurological / Psychiatric History Comment: MS - Cancer History Hx Cancer: No - Congenital Disorder History Hx Congenital Disorders: No - GI History Hx Gastrointestinal Disorders: No - Other Health History Other Health History: reading glasses - Chronic Pain History Chronic Pain: Yes - Surgical History Prior Surgeries: ham string repair. appendectomy. hernia repair. shoulder replacement ANE Review of Systems Review of systems is: negative Review of Systems: - Exercise capacity METS (RN): 4 METS ANE Patient History - Allergies Allergies/Adverse Reactions: No Known Allergies Allergy (Verified 07/11/17 15:35) - Home Medications Home medications: home medication list seen and reviewed Home Medications: Cholecalciferol Vit D3 [Vitamin D3 (*)] DAILY 04/22/17 [Last Taken 07/20/17] Herbals/Supplements -Info Only DAILY 04/22/17 [Last Taken 07/20/17] Multivitamins [Multivitamin (*)] DAILY 04/22/17 [Last Taken 07/20/17] Teriflunomide [Aubagio] HS 04/22/17 [Last Taken 07/29/17 20:00] Furosemide [Lasix 20 MG (*)] DAILY PRN 04/26/17 [Last Taken 07/28/17] Testosterone [Testopel] IM 04/26/17 [Last Taken 1 Month Ago ~06/29/17] Aspirin EC [Aspirin EC 325 mg (*)] DAILY 07/11/17 [Last Taken 07/22/17] Atorvastatin Calcium [Lipitor 20 mg (*)] DAILY 07/11/17 [Last Taken 07/22/17] Clopidogrel Bisulfate [Plavix (*)] DAILY 07/11/17 [Last Taken 07/22/17] Metoprolol Tartrate [Lopressor 25 mg (*)] BID 07/11/17 [Last Taken 07/29/17 20: 00] Triamterene/Hctz 75/50 [Maxzide 75-50 mg Tab (*)] DAILY 07/11/17 [Last Taken 02/03 07:00] Xtampza ER 28 mg 07/30/17 [Last Taken 07/29/17 14:00] - NPO status NPO Status: no food or drink >8 hours NPO Since - Liquids (Date): 07/29/17 NPO Since - Liquids (Time): 21:00 NPO Since - Solids (Date): 07/29/17 NPO Since - Solids (Time): 18:00 - Smoking Hx Smoking Status: Never smoked - Family Anes Hx Family Hx Anesthesia Complications: none ANE Labs/Vital Signs - Vital Signs Blood Pressure: 165/106 Heart Rate: 82 Respiratory Rate: 16 O2 Sat (%): 96 Height: 175.26 cm Weight: 79.379 kg ANE Physical Exam - Airway Neck exam: FROM Mallampati Score: Class 2 Mouth exam: normal dental/mouth exam - Pulmonary Pulmonary: no respiratory distress, clear to auscultation - Cardiovascular Cardiovascular: regular rate and rhythym - ASA Status ASA Status: II ANE Anesthesia Plan Anesthesia Plan: general endotracheal anesthesia
[2017-07-30] MEDS ORDERED: MIDAZOLAM 2 MG/2 ML VIAL IVP ONE (12:57)
[2017-07-30] MEDS ORDERED: MIDAZOLAM 2 MG/2 ML VIAL ONE (12:59)
[2017-07-30] MEDS ORDERED: fentaNYL 100 MCG/2 ML INJ ONE ×2 (13:17→18:59)
[2017-07-30] MEDS ORDERED: REMIFENTANIL HCL 1 MG VIAL ONE ×2 (13:17→16:10)
[2017-07-30] MEDS ORDERED: PROPOFOL 200 MG/20 ML VIAL ONE (13:18)
[2017-07-30] MEDS ORDERED: PROPOFOL/EMULSION 500 MG/50 ML BOTTLE IV ONE ×2 (13:18→16:09)
[2017-07-30] MEDS ORDERED: MAGNESIUM HYDROXIDE 30 ML UDCUP PO PRN (13:45)
[2017-07-30] MEDS ORDERED: NALOXONE HCL 0.4 MG/ML INJ IVP PRN ×2 (13:45→18:51)
[2017-07-30] MEDS ORDERED: ONDANSETRON 4 MG/2 ML VIAL IVP PRN ×2 (13:45→18:51)
[2017-07-30] MEDS ORDERED: BISACODYL 10 MG SUPP PR PRN (13:45)
[2017-07-30] MEDS ORDERED: morphINE PCA 30 MG/30 ML PCA IV PRN (13:45)
[2017-07-30] MEDS ORDERED: LACTULOSE 20 GM/30 ML UDCUP PO PRN (13:45)
[2017-07-30] MEDS ORDERED: NS 1,000 ML IV SCH (13:45)
[2017-07-30] MEDS ORDERED: POLYETHYLENE GLYCOL 3350 17 GM PKT PO PRN (13:45)
[2017-07-30] MEDS ORDERED: diphenhydrAMINE 25 MG CAP PO PRN (13:45)
[2017-07-30] MEDS ORDERED: ONDANSETRON DISINTEGRATING 4 MG TAB PO PRN (13:45)
[2017-07-30] MEDS ORDERED: METHOCARBAMOL 500 MG TAB PO PRN (14:00)
--- NOTE | 2017-07-30 18:44 | POSTOPPROG ---
Post Op Note Date of Operation: 07/30/17 Surgeon: Hugo Leroy [employer] Architect: Rosa Maria See NP Anesthesiologist: Warm Anesthesia: GET(General Endotracheal) Pre-op Diagnosis: Lumbar stenosis Procedure: L2-3, L3-4 TLIF Inf/Abcess present in the surg proc area at time of surgery?: No Depth: Deep Incisional (Fascial) EBL: 50-100 Drains: Michael Haile Date of Surgery: 07/30/17 Post Op Day: 0 Assessment/Plan: Assessment: 67 yr old M s/p L2-3, L3-4 TLIF for right quad and lateral thigh pain Plan: -PT/OT -Wear brace when out of bed -Pain management, MISSING [employer]ONS INVESTIGATOR ordered if needed -Xrays pending for am -FABRZIIO in place -Please call neurosurgery with any questions/concerns Subjective: waking up in PACU Objective: Waking up in PACU No droop BANSAL x4 5/5 BLE Sensation intact to light touch BLE Dressing/Incision CDI FABRIZIO patent Appropriate Neuro Check Frequency Ordered: Yes
[2017-07-30] MEDS ORDERED: PROMETHAZINE HCL 25 MG/ML INJ IVP PRN (18:51)
[2017-07-30] MEDS ORDERED: HYDROmorphONE/DILAUDID 1 MG/ML INJ IVP PRN (18:51)
[2017-07-30] MEDS ORDERED: ONDANSETRON 4 MG/2 ML VIAL ONE (18:51)
--- NOTE | 2017-07-30 18:53 | POSTANESTH ---
Post Anesthetic Evaluation Cardiovascular Status: Normal, Stable Respiratory Status: Normal, Stable Level of Consciousness/Mental Status: Can Participate in Eval Pain Control: Adequate, Prn Tx Ordered Nausea/Vomiting Control: Adequate, Prn Tx Ordered Complications Possibly Related to Anesthesia: None Noted
[2017-07-30] MEDS: fentaNYL 100 MCG/2 ML INJ IVP PRN ×2 (19:02→19:08)
[2017-07-30] MEDS ORDERED: HYDROmorphONE/DILAUDID 1 MG/ML INJ ONE (19:14)
[2017-07-30] MEDS ORDERED: DIAZEPAM 5 MG/ML 1 ML SYR IVP ONE (19:27)
[2017-07-30] MEDS ORDERED: DIAZEPAM 5 MG/ML 1 ML SYR ONE (19:39)
[2017-07-30] MEDS: ACETAMINOPHEN 500 MG TAB PO SCH ×2 (21:00→21:35)
[2017-07-30] MEDS: GABAPENTIN 300 MG CAP PO SCH ×2 (21:00→21:33)
--- NOTE | 2017-07-30 21:04 | GOP ---
[f rep st] OPERATIVE REPORT DATE OF OPERATION: 07/30/2017 SURGEON: Annette Leroy MD NEUROSURGEON: Annette Leroy MD OIL EXTRACTOR: Rosa Maria See, Nurse Practitioner. PREOPERATIVE DIAGNOSIS: Lumbar degenerative disk disease L2-3, L3-4; lumbar disc herniation L2-3, L3-4; foraminal disk fragment, right L3-4. Prior surgery L3-4, prior left-sided surgery L4-5. Right-sided lumbosacral radiculopathy. There was spondylolisthesis of L3 relative to L4 and retrolisthesis of L2 to L3 POSTOPERATIVE DIAGNOSIS: Lumbar degenerative disk disease L2-3, L3-4; lumbar disc herniation L2-3, L3-4; foraminal disk fragment, right L3-4. Prior surgery L3-4, prior left-sided surgery L4-5. Right-sided lumbosacral radiculopathy. There was spondylolisthesis of L3 relative to L4 and retrolisthesis of L2 to L3 PROCEDURE PERFORMED: Posterior lateral intervertebral arthrodesis with decompressions at L2-3, L3-4, with placement of biomechanical intervertebral device L2-3, L3-4 (61671, 12340, 16228 x2), posterior segmental instrumentation L2, L3, L4 ([id number]), same incision bone graft harvest, microscope, spinal stereotaxis. FINDINGS: ESTIMATED BLOOD LOSS: 250 cc. INDICATIONS: Mr. Amador is a 67-year-old gentleman with a prior history of spine surgery both at L3-4, L4-5, with good clinical result, who developed excruciating radiating right leg pain and a large inferior extrusion at L2-3. It followed along the L3 nerve root out in the neural foramen. He had terrible radiating leg pain and an MRI that had been done in February demonstrated this pathology and he had spondylolisthesis of L3 anterior to L2 and anterior to L4. So my partner and I felt that an instrumented fusion at L2-3, L3-4 was warranted, but we even discussed fusing L4-5. He had some left-sided pathology at that level, but he really had no left-sided symptoms whatsoever. He was originally slated for surgery and this was delayed. He became narcotic dependent and was taking large doses of an extended release narcotic and this is how he made it through the several months. He is cleared for surgery and wanted to proceed. He knew there was risk of cardiac event during the surgery, although this is relatively low. He knew there was risk that surgery might fail to alleviate his leg pain, that he may have chronic pain. He knew there was risk of screw and hardware failure, malposition, CSF leak, nerve injury, pseudoarthrosis, and adjacent segment disease. I was indeed very concerned about L4-5 and I discussed this with him and he knew that almost certainly at some point in the future L4-5 would require surgery. 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 This was particularly true in light of his cardiac history, but my main concern was keeping the surgery as small as possible, which is my general bias. He also had a notably small left- sided pedicle at L2 and I knew this would present some problems for instrumentation and I wanted to try to keep the construct as small as possible. He understood these risks. He knew surgery may be required at L4-5 and even possibly in short order, but it was our hope that this alone would solve his problem and get him back on his feet to recover. I did feel that in time he may ultimately undergo an L2 to S1 fusion. He did want to proceed. DESCRIPTION OF PROCEDURE: Patient was taken to the operating room, placed in supine position. General anesthesia was begun. A Zhou catheter was placed. The patient had a history of a urethral stricture and the nurses used a very small catheter and placed it without difficulty. He was flipped prone on the Michael table. Care was taken to pad all points of contact. His back was sterilely prepped and draped in the usual fashion. We made a midline incision from the spinous process of L1 down to the spinous process of L4. The subcutaneous tissue was dissected using Bovie cautery down to the fascia and a subperiosteal dissection was made down the inferior lamina of L1. The lamina of L2-3 and the rostral lamina of L4 were exposed. A localizing x-ray was taken. We denuded and removed the hypertrophic L2-3, L3-4 facet joints. We completely preserved the L1-2 facet joint. We decorticated the transverse processes. We attached the Stealth reference frame, performed an O-arm spin and using frame a Stealth stereotaxy. We placed pedicle screws bilaterally. We began on the left-hand side at L4, L3, and L2 and we then went to the right side at L4, L3, and, L2. Screw placement was particularly difficult on the left at L2 because the pedicle was very small, but the other screw placement was relatively straightforward. We performed an O-arm spin to check all these screws and I actually purposely had used a 4 mm screw on the left at L2 to check the pedicle diameter dynamically and I was going to enlarge the screw if possible based upon screw trajectory after checking placement with the O-arm. This screw was going to be discarded because of the patient's anatomy and I felt this was safest for the patient to place the 4 screw initially. We performed an O-arm spin and there appeared to be a lateral and rostral offset on the right-hand side. It was unusual on the L2, 3, and 4 screws on the right- hand side were rostrally displaced. There was no violation of the canal, but they did violate the disk space in the very rostral most portion of the pedicle of their trajectory at L2, 3, and 4 respectively. These were removed. I also removed the left L2 screw and it had a slight rostral bias, but it was not the same as the right-sided screws. I then navigated using this new spin and placed new pedicle screws on the right at L3 and L4 and it was relatively straightforward. We simply entered the pedicle inferiorly in a completely separate hole and trajectory was used and it was not difficult at all to get the screws soundly seated in the pedicle, but I was still concerned that there was a problem with our reference frame. It was secured to the bone. There was no problem with the way it was secured, but we shot a lateral x-ray and the screws at L3 and L4 were in excellent position, but when we were checking Stealth to begin placement of the L2 screws the Stealth was clearly off. We did not place these screws. However, we simply moved the frame to the L2 spinous process and performed a new O-arm spin. Using frameless Stealth stereotaxy, we then placed pedicle screws bilaterally at L2. We had excellent bony purchase. We used a 5.5 mm screw on the right and a 4.5 mm screw on the left. Final Stealth spin was made and all the screws were in excellent position. It was not clear to me why grabbing the L3 spinous process led to the inaccuracy. This is not a problem that I had encountered before, and all 3 screws had the same offset and trajectory inaccuracy, so it did appear to be a problem with the navigation. The problem, however, was solved and our final spin demonstrated perfect positioning of all the screws wholly located within the pedicle and actually a bony purchase within the pedicle was very, very good for all of the screws and his bone quality was good. They all stimulated at acceptable levels. We took 65 mm rods, placed them down between L2 and L4 and gently distracted each level. They were highly mobile and easy to move and this did just partially reduce the spondylolisthesis of L3 and it slightly opened the disk space, particularly at L2-3, where it was bone on bone. I did not radically distract it, did not want to change the overall anatomy of this lumbar spine, particularly given the adjacent segments that already had some pathology. We then removed all the soft tissue of the bone L2, L3, and L4. We harvested the inferior L2 spinous process, the complete L3 spinous process. We then drilled right side of laminas of L2-3 and re- did the lamina on the right at L3-4. There was an inferior laminotomy, but we removed the IAP of L3 and IAP of L2. We harvested all this bone for autologous grafting purposes and under the scope we decompressed the thecal sac centrally at L2-3. We later did some left-sided decompression at L2-3, undercutting the facet and removing some ligamentum flavum on the left-hand side. We decompressed completely the right side at L2-[address] along the L3 nerve and down adjacent L3 pedicle into the L3-4 neural foramen. One could not appreciate any disc material at this point. We completely opened the L3-4 neural foramen on the right-hand side. We performed a medial facetectomy and removed the medial portion of the superior articulating process of L4, decompressing the traversing L4 root at the L3-4 level. We had good visualization of the lateral thecal sac. The inferior laminotomy and the scar tissue was allowed to remain intact, but we did identify the lateral thecal sac and the takeoff of the L4 nerve root and this was totally decompressed. We then turned our attention to the L2-3 disc. There was still some slight retrolisthesis of L2 against L3. We incised the disk, removed the disk and the cartilaginous endplates. There was not much disk material present there and this was relatively easy. We then followed the L3 nerve root inferiorly and swept it medially and as we followed it inferiorly into its neural foramen at L3-4 there was just a huge fragment of disk tenting up the L3 nerve root and flattening the root inferior to the pedicle of L3. We retracted the nerve root off this and I expected this fragment to simply come out and we had great visualization. We incised it and we began to remove it and it simply was very firmly stuck to the bone. Our wide exposure came in handy. We took the time necessary to completely extirpate this fragment and it did take considerable effort, but we got all of it removed. This completely relaxed the L3 nerve root and allowed it to sit in its lime location adjacent to the L3 pedicle. We turned our attention to the L3-4 disk. We removed the disk and the cartilaginous endplates. This was a more normal disk. We got a good removal of the disk itself and placed bone autograft and BMP into this disk space as well as into the disk space at L2-3. We then chose a 7 mm x 25 mm [place] PEEK intervertebral device, inserted at L2-3 under fluoroscopic guidance, and then chose an 8 x 25 mm device at L3-4, packed it with bone morphogenic protein and inserted it at L3-4. Both the devices were in excellent position in the disk space and this was confirmed with AP and lateral fluoroscopic images. All of our cap screws had been torqued to company specification. Our implants were in great position. We decorticated all the remaining bone posterolaterally bilaterally at L2-3, L3-4. There was a large amount of bone on the left-hand side to decorticate including the facets and we did take time to carefully and thoroughly do this and packed bone autograft and BMP posterolaterally on the left and on the right. There was much less bone obviously on the right since we had removed the right L2-3, L3-4 facets. We then placed a subfascial drain, and then closed the incision in multiple layers using Vicryl sutures. Steri-Strips were applied to skin. After application of steristrips as we turned on the room lights, we appreciated a fly in the surgical suite. There had been no indication of this until the incision was closed. The patient was reversed from anesthesia, extubated, and transferred to recovery room in stable condition. There were no complications outside of the mentioned difficulty with Stealth and accuracies that were ultimately totally corrected during surgery. At no time during the screw malposition was there evidence of any nerve irritability or injury potentials. None of the screws breached the rostral neural foramen where the nerves were housed. COMPLICATIONS: None. /[id number]/MODL MTDD
[2017-07-30] MEDS: ceFAZolin 2 GM/DEXTROSE 100 ML IV SCH (21:29)
[2017-07-30] MEDS: SENNOSIDES/DOCUSATE SODIUM TAB PO SCH (21:32)
[2017-07-30] MEDS: FAMOTIDINE 20 MG TAB PO SCH (21:32)
[2017-07-30] MEDS: morphINE SR 15 MG TAB PO SCH (21:32)
[2017-07-30] MEDS: oxyCODONE IR 5 MG TAB PO PRN (21:33)
[2017-07-31] MEDS: ceFAZolin 2 GM/DEXTROSE 100 ML IV SCH (05:07)
[2017-07-31] MEDS: ACETAMINOPHEN 500 MG TAB PO SCH ×3 (05:08→22:12)
[2017-07-31] MEDS: GABAPENTIN 300 MG CAP PO SCH ×3 (05:08→22:12)
[2017-07-31 05:27] LABS: PLATELET COUNT 142 10^3/uL (150-400)
--- NOTE | 2017-07-31 07:12 | NEUSURGPN ---
Date of Surgery: 07/30/17 Post Op Day: 1 Assessment/Plan: Assessment: 67 yr old M s/p L2-3, L3-4 TLIF for right quad and lateral thigh pain POD#1 Plan: -PT/OT -Wear brace when out of bed -Pain management, changed Robaxin to scheduled. Patient takes long acting Xtampza pre op, ordered MS Contin BID to cover -Xrays pending for this am -FABRIZIO in place, will remove later today at 1600 -Dr Leroy discussed that the BMP used intra-op was not constituted during his surgery yesterday -Ok to restart Plavix on Friday08/02/17 -Please call neurosurgery with any questions/concerns Dr Leroy saw and spoke to patient as well Subjective: Expected incisional pain Objective: AxO x3 PERRLA 5/5 BLE Sensation intact to light touch BLE FABRIZIO patent Dressing/Incision CDI Neuro Check Frequency: per routine Urinary Catheter in Place: No Catheter Insertion Date: 07/30/17 - Physician Discussed Patient with : Rad Patient Seen by : Rad Neurosurgery Physical Exam - Vitals, I&O, Labs I and O 07/30/17 07/31/17 08/01/17 05:59 05:59 05:59 Intake Total 3950 Output Total 1765 Balance 2185 Weight 79.379 kg Intake: Oral (ml) 550 IV Intake (ml) 2600 IV Infused (ml) 800 Ns 1,000 ml @ 75 mls/hr 600 IV CONT ONELIA Rx#: [id number] ceFAZolin 2 GM/DEXTROSE 200 100 ml @ 200 mls/hr IV Q8HRS ONELIA Rx#:[id number] Output: Urine (ml) 1125 Catheter 1125 Estimated Blood Loss (ml) 250 FABRIZIO Drain Output (ml) 390 Back Michael Haile 390 Other: Number of Voids Catheter 1 Vital Signs Temp Pulse Resp BP Pulse Ox 36.7 C 72 16 117/70 95 07/31/17 03:51 07/31/17 03:51 07/31/17 03:51 07/31/17 03:51 07/31/17 03:51 Laboratory Results 07/31/17 04:48 07/31/17 04:48 ICD10 Worksheet Patient Problems: Problems Problem Status Onset Abdominal pain Acute Acute coronary syndrome Acute
[2017-07-31] MEDS: morphINE SR 15 MG TAB PO SCH ×2 (07:41→20:14)
[2017-07-31] MEDS: oxyCODONE IR 5 MG TAB PO PRN ×4 (07:41→20:14)
[2017-07-31] MEDS: METHOCARBAMOL 500 MG TAB PO SCH ×4 (07:50→20:15)
[2017-07-31] MEDS ORDERED: TRIAMTERENE/HCTZ 37.5/25 1 EACH TAB PO SCH (09:00)
[2017-07-31] MEDS: ATORVASTATIN CALCIUM 20 MG TAB PO SCH (09:19)
[2017-07-31] MEDS: METOPROLOL TARTRATE 25 MG TAB PO SCH ×2 (09:25→20:15)
[2017-07-31] MEDS: FAMOTIDINE 20 MG TAB PO SCH ×2 (09:27→20:13)
[2017-07-31] MEDS: SENNOSIDES/DOCUSATE SODIUM TAB PO SCH ×2 (09:27→20:18)
[2017-07-31] MEDS: TRIAMTERENE/HCTZ 37.5/25 1 EACH TAB PO SCH (10:03)
--- NOTE | 2017-07-31 10:06 | ASMTCMCOM ---
CM Note CM Note Notes: Chart reviewed. Patient is a 67 year old patient with chronic back pain that underwent spinal surgery. PT an OT notes are pending. He is post op day 1. Needs to be determined. CM to follow. Plan: TBD Date Signed: 07/31/2017 10:05 AM Electronically Signed By:Radha Arrington RN
[2017-07-31] MEDS ORDERED: METHOCARBAMOL 500 MG TAB PO SCH (12:00)
--- NOTE | 2017-07-31 14:29 | PDMN ---
Medical Necessity Medical necessity: IP only surgery, cpt 63[address], [facility] S-820 Lumbar Fusion (L2-3, L3 -4 TLIF)
[2017-07-31] MEDS: Teriflunomide [Aubagio] 14 MG PO SCH (18:55)
[2017-08-01] MEDS: oxyCODONE IR 5 MG TAB PO PRN ×4 (05:07→22:16)
[2017-08-01] MEDS: METHOCARBAMOL 500 MG TAB PO SCH ×4 (05:07→22:16)
[2017-08-01] MEDS: GABAPENTIN 300 MG CAP PO SCH ×3 (05:07→22:16)
[2017-08-01] MEDS: ACETAMINOPHEN 500 MG TAB PO SCH ×3 (07:15→22:17)
[2017-08-01] MEDS: morphINE SR 15 MG TAB PO SCH ×2 (08:28→22:17)
[2017-08-01] MEDS: SENNOSIDES/DOCUSATE SODIUM TAB PO SCH ×2 (08:28→22:17)
[2017-08-01] MEDS: FAMOTIDINE 20 MG TAB PO SCH ×2 (08:28→22:16)
[2017-08-01] MEDS: METOPROLOL TARTRATE 25 MG TAB PO SCH ×2 (08:29→22:18)
[2017-08-01] MEDS: ATORVASTATIN CALCIUM 20 MG TAB PO SCH (08:29)
[2017-08-01] MEDS: TRIAMTERENE/HCTZ 37.5/25 1 EACH TAB PO SCH (08:30)
[2017-08-01] MEDS ORDERED: TRIAMTERENE/HCTZ 37.5/25 1 EACH TAB PO SCH (09:00)
--- NOTE | 2017-08-01 09:01 | NEUSURGPN ---
Date of Surgery: 07/30/17 Post Op Day: 2 Assessment/Plan: Assessment: 67 yr old M s/p L2-3, L3-4 TLIF for right quad and lateral thigh pain POD#2 Plan: -PT/OT -Wear brace when out of bed -Pain management, changed Robaxin to scheduled. Patient takes long acting Xtampza pre op, ordered MS Contin BID to cover. Will have him resume Xtampza upon discharge -Xrays: hardware in good placement -FABRIZIO removed on 07/31 -Ok to restart Plavix on Friday08/02/17 -Possibly home later today if progresses well, if not then tomorrow am -Please call neurosurgery with any questions/concerns Subjective: Having localized back pain. No lower extremity pain, numbness, tingling. Objective: Awake. Alert. PERRL Facial expression symmetrical Strength full at 5/5 Sensation intact Catheter Insertion Date: 07/30/17 - Physician Discussed Patient with : Rad Neurosurgery Physical Exam - Vitals, I&O, Labs I and O 07/31/17 08/01/17 08/02/17 05:59 05:59 05:59 Intake Total 3950 2700 Output Total 1765 3235 300 Balance 2185 -535 -300 Weight 79.379 kg Intake: Oral (ml) 550 2300 IV Intake (ml) 2600 IV Infused (ml) 800 400 Ns 1,000 ml @ 75 mls/hr 600 400 IV CONT ONELIA Rx#: [id number] ceFAZolin 2 GM/DEXTROSE 200 100 ml @ 200 mls/hr IV Q8HRS ONELIA Rx#:[id number] Output: Urine (ml) 1125 3125 300 Catheter 1125 Urinal 3125 300 Estimated Blood Loss (ml) 250 FABRIZIO Drain Output (ml) 390 110 Back Michael Haile 390 110 Other: Intake Quantity Yes Sufficient Number of Voids Catheter 1 Urinal 1 Vital Signs Temp Pulse Resp BP Pulse Ox 36.8 C 88 17 132/73 H 87 L 08/01/17 07:23 08/01/17 08:29 08/01/17 07:23 08/01/17 08:30 08/01/17 07:23 Laboratory Results 07/31/17 04:48 07/31/17 04:48 ICD10 Worksheet Patient Problems: Problems Problem Status Onset Abdominal pain Acute Acute coronary syndrome Acute
--- NOTE | 2017-08-01 14:44 | ASMTCMCOM ---
CM Note CM Note Notes: OT rec home, PT rec home/HHC. Pt agreeable to [facility]. Pt chooses [facility], alerted Jaja at [facility] and sent referral in [employer]. Address/phone verified. CM to follow. D/c plan of care: Home with home health care PT Date Signed: 08/01/2017 02:44 PM Electronically Signed By:JOSHUA Farley
[2017-08-01] MEDS: Teriflunomide [Aubagio] 14 MG PO SCH (22:15)
[2017-08-02] MEDS: METHOCARBAMOL 500 MG TAB PO SCH (06:40)
[2017-08-02] MEDS: ACETAMINOPHEN 500 MG TAB PO SCH (06:40)
[2017-08-02] MEDS: GABAPENTIN 300 MG CAP PO SCH (06:40)
[2017-08-02] MEDS: oxyCODONE IR 5 MG TAB PO PRN (06:42)
[2017-08-02 07:23] VITALS: BP 129/79
[2017-08-02] MEDS ORDERED: ENOXAPARIN 40 MG/0.4 ML SYR SC SCH (09:00)
[2017-08-02] MEDS: ATORVASTATIN CALCIUM 20 MG TAB PO SCH (09:26)
[2017-08-02] MEDS: FAMOTIDINE 20 MG TAB PO SCH (09:28)
[2017-08-02] MEDS: METOPROLOL TARTRATE 25 MG TAB PO SCH (09:28)
[2017-08-02] MEDS: SENNOSIDES/DOCUSATE SODIUM TAB PO SCH (09:29)
[2017-08-02] MEDS: morphINE SR 15 MG TAB PO SCH (09:29)
[2017-08-02] MEDS: TRIAMTERENE/HCTZ 37.5/25 1 EACH TAB PO SCH (09:31)
--- NOTE | 2017-08-02 10:49 | NEUSURGPN ---
Assessment/Plan: ssessment/Plan: Assessment: 67 yr old M s/p L2-3, L3-4 TLIF for right quad and lateral thigh pain POD#3 Plan: -PT/OT -Wear brace when out of bed -Pain management, changed Robaxin to scheduled. Patient takes long acting Xtampza pre op, ordered to continue MS Contin at home for next two weeks on taper -Xrays: hardware in good placement -FABRIZIO removed on 07/31 -Ok to restart Plavix on Friday08/02/17 -Home later this afternoong after works with PT one more time. Home with Home Health Care -Please call neurosurgery with any questions/concerns -Discussed with Dr. Leroy Subjective: Having localized back pain. Leg pain improved. Eager to go home. Objective: Awake. Alert. PERRL Facial expression symmetrical Strength full at 5/5 Sensation intact Incision c/d/i- dressing removed Catheter Insertion Date: 07/30/17 - Physician Discussed Patient with Dr.: Leroy Neurosurgery Physical Exam - Vitals, I&O, Labs I and O 08/01/17 08/02/17 08/03/17 05:59 05:59 05:59 Intake Total 2700 250 900 Output Total 3235 1875 900 Balance -535 -1625 0 Intake: Oral (ml) 2300 250 900 IV Infused (ml) 400 Ns 1,000 ml @ 75 mls/hr 400 IV CONT ONELIA Rx#: [id number] Output: Urine (ml) 3125 1875 900 Toilet 375 Urinal 3125 1500 900 FABRIZIO Drain Output (ml) 110 Back Michael Haile 110 Other: Intake Quantity Yes Yes Yes Sufficient Number of Voids Toilet 1 Urinal 1 1 1 Vital Signs Temp Pulse Resp BP Pulse Ox 36.5 C 69 16 129/79 H 91 L 08/02/17 07:20 08/02/17 07:20 08/02/17 07:20 08/02/17 07:20 08/02/17 07:20 Laboratory Results 07/31/17 04:48 07/31/17 04:48 ICD10 Worksheet Patient Problems: Problems Problem Status Onset Abdominal pain Acute Acute coronary syndrome Acute
--- NOTE | 2017-08-02 10:51 | PDIAF ---
- Diagnosis Code Status: Full Code - Medication Management Discharge Medications: Medications to Continue on Transfer Cholecalciferol Vit D3 [Vitamin D3 (*)] 1,000 mg PO DAILY 04/22/17 [Last Taken 07/20/17] Teriflunomide [Aubagio] 14 mg PO HS 04/22/17 [Last Taken 07/29/17 20:00] Furosemide [Lasix 20 MG (*)] 10 - 20 mg PO DAILY PRN 04/26/17 [Last Taken ] Testosterone [Testopel] 1 ea IM Q180D 04/26/17 [Last Taken 3 Months Ago ~] Atorvastatin Calcium [Lipitor 20 mg (*)] 20 mg PO DAILY 07/11/17 [Last Taken 07/04] Clopidogrel Bisulfate [Plavix (*)] 75 mg PO DAILY 07/11/17 [Last Taken 07/22/17] Metoprolol Tartrate [Lopressor 25 mg (*)] 12.5 mg PO BID 07/11/17 [Last Taken 20:00] Triamterene/Hydrochlorothiazid [Triamterene-Hctz 37.5-25 mg Tb] 2 each PO DAILY 07/30/17 [Last Taken 07/29/17 07:00] Acetaminophen [Tylenol ES 500 mg (*)] 1,000 mg PO Q8HRS tab 08/02/17 [Last Taken Unknown] Gabapentin [Neurontin 300 MG (*)] 300 mg PO Q8HRS #90 cap 08/02/17 [Last Taken Unknown] Methocarbamol [Robaxin 500 mg (*)] 750 mg PO QID #60 tab 08/02/17 [Last Taken Unknown] Polyethylene Glycol 3350 [Miralax 17 gm (*)] 17 gm PO DAILY PRN pkt 08/02/17 [ Last Taken Unknown] morphINE SR [Ms Contin/Oramorph 15 mg (*)] 15 mg PO BID #21 tab 08/02/17 [Last Taken Unknown] oxyCODONE IR [Oxycodone Ir (*)] 5 - 10 mg PO Q4HRS PRN #90 tab 08/02/17 [Last Taken Unknown] Discharge Medications: Refer to the Discharge Home Medication list for PRN reason. - Orders Services needed: Home Care, Registered Nurse, Physical Therapy, Occupational Therapy Home Care Face to Face: I certify that this patient was under my care and that I had the required [id number] encounter meeting the encounter requirements on the discharge day. My findings support the fact that the patient is homebound as defined in Home Care Face to Face Continued: [facility] Chapter 7 Medicare Benefits Manual 30.1.1 , The condition of the patient is such that there exists a normal inability to leave home and consequently, leaving home would require a considerable and taxing effort. Diet Recommendation: no restrictions on diet Diet Texture: Regular Texture Diet Wound Care Instructions: Keep clean and dry may shower postop day #3, pat dry with towel may get steri strips wet with soap and water no scrubbing Activity/Weight Bearing Restrictions: Wear brace when up and out of bed. No bending, lifting, twisting more than 5-10 pounds Additional Instructions: No bending or twisting Do not lift greater than 10 pounds Wear brace when out of bed Ok to remove dressing Friday08/02/17, leave steri strips in place Ok to shower Friday08/02/17 Do not submerge incision in tub/pool for 2-3 weeks Follow up with Dr. Leroy in 2 weeks. Call [phone] for any questions or concerns - Follow Up Care Current Providers and Referrals: Beto Lomeli MD [Primary Care Provider] - Hugo Leroy MD [Medical Doctor] - follow up in 2 weeks
--- NOTE | 2017-08-02 15:39 | ASDISCHSUM ---
Discharge Information Plan Status:Home with Home Health Medically Cleared to Leave: Discharge Date:08/02/2017 12:45 PM D/C Disposition:Home Health Service ADT D/C Disposition:Home, Routine, Self-Care Projected Discharge Date:08/02/2017 11:00 AM Transportation at D/C: Discharge Delay Reason: Follow-Up Date:08/02/2017 11:00 AM Discharge Slot: Final Diagnosis: Placement Information Referral Type:*Home Health Care Services Referral ID:[id number] Provider Name:[facility] Address 1:[address] [place] [address] Address 2: City:[place] Selection Factors: State:[place] Patient Contact Information Contact Name:MARLO Relationship: Address:[address] City:[place] Alternate Phone: State/Zip Code:[place] [address] Email: Financial Information Financial Class:Medicare Advantage Plans Primary Plan Desc:[place] [place] Primary Plan Number:[id number] Secondary Plan Desc: Secondary Plan Number: Assessment Information LACE LACE Length of stay for Answers: 2 days current admission Acuity / Level of Answers: Yes Care: Did the patient have an inpatient admission? Comorbidities - select Answers: Coronary Artery Disease all that apply Opioid dependence / Chronic pain Previous myocardial infarction Other Notes: HTN # of Emergency department Answers: 1-2 visits in the last 6 months Score: 14 Date Signed: 08/02/2017 03:37 PM Electronically Signed By:Mai Ray RN [facility] CM Progress Note CM Note CM Note Notes: Chart reviewed. Patient is a 67 year old patient with chronic back pain that underwent spinal surgery. PT an OT notes are pending. He is post op day 1. Needs to be determined. CM to follow. Plan: TBD Date Signed: 07/31/2017 10:05 AM Electronically Signed By:Radha Arrington RN [facility] CM Progress Note CM Note CM Note Notes: OT rec home, PT rec home/[facility]. Pt agreeable to [facility]. Pt chooses [facility], alerted Jaja at [facility] and [facility] Address/phone verified. CM to follow. D/c plan of care: Home with home health care PT Date Signed: 08/01/2017 02:44 PM Electronically Signed By:JOSHUA Farley Case Management Discharge Plan Note Case Management Discharge Discharge Order Complete? Answers: Yes Patient to Obtain Answers: via Family Medications Transportation Arranged Answers: Family/Friends Discharge Comments Notes: Pt dc'd home today w/. He will be followed by [facility] for home PT. Notified Radha w/[facility]. Date Signed: 08/02/2017 03:01 PM Electronically Signed By:Mai Ray RN Intervention Information
[2017-10-30] MEDS ORDERED: TESTOSTERONE IM SCH (09:00)
== END 2017-08-02 12:45 | disposition home or self-care (01) | DRG 460 ==
LOC: F3N 07-30 09:42
PROVIDERS: ADMIT Neurological Surgery; ATTEND Neurological Surgery
PROC: 0SG10AJ Fusion of 2 or more Lumbar Vertebral Joints with Interbody Fusion Device, Posterior Approach, Anterior Column, Open Approach (ICD-10-PCS; principal; 2017-07-30 13:30)
PROC: 3E0U0GB Introduction of Recombinant Bone Morphogenetic Protein into Joints, Open Approach (ICD-10-PCS; principal; 2017-07-30 13:30)
PROC: 0QB00ZZ Excision of Lumbar Vertebra, Open Approach (ICD-10-PCS; principal; 2017-07-30 13:30)
PROC: 01NB0ZZ Release Lumbar Nerve, Open Approach (ICD-10-PCS; principal; 2017-07-30 13:30)
PROC: 0ST40ZZ Resection of Lumbosacral Disc, Open Approach (ICD-10-PCS; principal; 2017-07-30 13:30)
DX: M51.16 Intervertebral disc disorders with radiculopathy, lumbar region (principal); M43.16 Spondylolisthesis, lumbar region
CPT/HCPCS: 97116-GP; 97161-GP; 97166-GO; 97535-GO; C1713; G8978-GP-CI; G8979-GP-CH; G8979-GP-CI; G8980-GP-CI; G8987-GO-CJ; G8988-GO-CI; G8989-GO-CI; J0171; J0690; J1170; J1650; J2250; J2405; J2704; J3010; J3360

== ENCOUNTER → 2017-11-25 | Outpatient (CLI) | payer OTHER | LOC: FIMAGING 10:10 | PROVIDERS: ATTEND Physician Assistant | DX: Z98.1 Arthrodesis status (principal) ==

== ENCOUNTER → 2018-02-25 | Outpatient (CLI) | payer OTHER | END | disposition home or self-care (01) | LOC: FIMAGING 15:01 | PROVIDERS: ATTEND Physician Assistant | DX: M54.5 Low back pain (principal); Z98.1 Arthrodesis status; M51.16 Intervertebral disc disorders with radiculopathy, lumbar region; M54.12 Radiculopathy, cervical region ==

== ENCOUNTER → 2018-05-29 | Outpatient (CLI) | payer OTHER | LOC: FIMAGING 13:25 | PROVIDERS: ATTEND Physician Assistant Medical | DX: G35 Multiple sclerosis (principal); M51.25 Other intervertebral disc displacement, thoracolumbar region; M48.05 Spinal stenosis, thoracolumbar region; M48.02 Spinal stenosis, cervical region; M50.31 Other cervical disc degeneration, high cervical region; M50.321 Other cervical disc degeneration at C4-C5 level; M50.322 Other cervical disc degeneration at C5-C6 level; M50.323 Other cervical disc degeneration at C6-C7 level; M50.33 Other cervical disc degeneration, cervicothoracic region; M12.88 Other specific arthropathies, not elsewhere classified, other specified site; G95.89 Other specified diseases of spinal cord; M99.71 Connective tissue and disc stenosis of intervertebral foramina of cervical region | CPT/HCPCS: 70551-PN ==

== ENCOUNTER → 2018-08-05 | Outpatient (CLI) | payer OTHER | LOC: FIMAGING 09:44 ==

== ENCOUNTER → 2018-08-17 | Outpatient (CLI) | payer OTHER | LOC: FIMAGING 18:36 ==